=== PATIENT | male | born 1975 | race Caucasian/White ===

== ENCOUNTER 2017-11-04 14:20 | Emergency (ER) | payer SELFPAY ==
[~2017-11-04] VITALS: Ht 193 cm; Wt 122.0 kg
[2017-11-04] MEDS ORDERED: cefTRIAXone 1 GM (ROCEPHIN) VIAL IV STA (15:09)
[2017-11-04] MEDS ORDERED: LACTATED RINGERS 1,000 ML IV ONE (15:09)
--- NOTE | 2017-11-04 15:09 | ED GU-Male ---
General Chief Complaint: Skin/Wound Problems Stated Complaint: GROIN INFECTION PER [facility] Nursing Triage Note: Patient advises that he had a hydrocelectomy approximately 8 years ago. Since the procedure about every 8months to a year he experiences severe cellulitis and infection that is normally responsive to antibiotics. He advises he was seen at the [place] [facility] today and was sent for further evaluation. Source: patient, other Exam Limitations: no limitations History of Present Illness Time seen by provider: 15:01 Initial Comments Patient presents to ER by private conveyance with a chief complaint that for 8 months proceeding today he has had some progressively swelling and redness and tenderness in his scrotum however in the last few days it has gotten progressively worse the point at 8 out of 10 severity legs being kicked in the next he had some fevers. He says his been going on for about 8 years when he had a seroma surgically removed out of his scrotum by urologist in [facility]. Since that time is get the slow reaccumulation is without maybe he had a underlying infection resulting in cellulitis and have treated with multiple courses and presently longer courses of antibiotics. He is also seen a urologist in [facility] but has not come up with a tear or diagnosis yet other than trying longer courses of antibiotics which usually resolve it. He says he occasionally gets blisters on the scrotum which she will symptoms pop and they will relieve a clear straw-colored non-foul smelling serous fluid and relieve some pressure in his scrotum. He is having no nausea or vomiting, diarrhea. He has swelling around the shaft of the penis and it has been more difficult to start a urinary stream and it solis when he pees in the last day or so. He has been in in a monogamous relationship for about a year. He has painful sex and no discharge. Allergies and Home Medications Allergies Coded Allergies: No Known Drug Allergies (Unverified , 11/04/17) Constitutional: No chills, No diaphoresis EENTM: no symptoms reported Respiratory: no symptoms reported Cardiovascular: no symptoms reported Gastrointestinal: No abdominal pain, No constipation, No diarrhea, No nausea, No vomiting Genitourinary: see HPI, denies burning, denies discharge Musculoskeletal: no symptoms reported Skin: No pruritus, No rash Past [id number]-[id number]-Lcbprs Hx Patient Social History Alcohol Use: Denies Use Recreational Drug Use: No Smoking Status: Never a Smoker Recent Foreign Travel: No Contact w/Someone Who Travel: No Recent Infectious Disease Expo: No Recent Hopitalizations: No Physical Abuse: No Sexual Abuse: No Seasonal Allergies Seasonal Allergies: No Surgeries History of Surgeries: Yes (hydrocelectomy) Respiratory History of Respiratory Disorde: No Cardiovascular History of Cardiac Disorders: No Neurological History of Neurological Disord: No Genitourinary History of Genitourinary Disor: No Gastrointestinal History of Gastrointestinal Di: No Musculoskeletal History of Musculoskeletal Dis: No Endocrine History of Endocrine Disorders: No HEENT History of HEENT Disorders: No Cancer History of Cancer: No Psychosocial History of Psychiatric Problem: No Suicide Risk Score: 0 Physical Exam Vital Signs Vital Sign - Last 12Hours 11/04/17 14:44 Temp 97.9 Pulse 87 Resp 20 B/P (MAP) 130/88 (102) Pulse Ox 94 O2 Delivery Room Air Capillary Refill : Less Than 3 Seconds General Appearance: WD/WN, mild distress HEENT: PERRL/EOMI, pharynx normal Neck: non-tender, normal inspection Cardiovascular: normal peripheral pulses, regular rate, rhythm Respiratory: chest non-tender, no respiratory distress, no accessory muscle use Gastrointestinal: normal bowel sounds, non tender, soft Male: No testicular tenderness, other (scrotum is erythematous, warm, swollen, fluid-filled the size of a coconut with edematous swelling around the penis circumferential around just proximal to the uriarte.) Extremities: normal range of motion, normal capillary refill Neurologic/Psychiatric: alert, oriented x 3 Focused Exam Evaluation Lactate Level Laboratory Tests 11/04/17 14:41: Lactic Acid Level 0.97 Lactic Acid Level Laboratory Tests Test 11/04/17 14:41 Lactic Acid Level 0.97 MMOL/L (0.50-2.00) Progress/Results/Core Measures Suspected Sepsis Recent Fever Within 48 Hours: Yes Infection Criteria Present: Suspected New Infection New/Unexplained Altered Menta: Yes Sepsis Screen: No Definite Risk Sepsis Diagnosis: SIRS Temperature:97.9 Pulse: 87 Respiratory Rate: 20 Laboratory Tests 11/04/17 14:41: White Blood Count 11.9H Blood Pressure 130 /88 Mean: 102 Laboratory Tests 11/04/17 14:41: Lactic Acid Level 0.97 Laboratory Tests 11/04/17 14:41: Creatinine 0.94, Platelet Count 233, Total Bilirubin 0.6 Results/Orders Lab Results Laboratory Tests Test 11/04/17 14:41 11/04/17 15:34 Range/Units White Blood Count 11.9 H 4.3-11.0 10^3/uL Red Blood Count 5.65 4.35-5.85 10^6/uL Hemoglobin 15.7 13.3-17.7 G/DL Hematocrit 45 40-54 % Mean Corpuscular Volume 80 80-99 FL Mean Corpuscular Hemoglobin 28 25-34 PG Mean Corpuscular Hemoglobin Concent 35 32-36 G/DL Red Cell Distribution Width 13.5 10.0-14.5 % Platelet Count 233 130-400 10^3/uL Mean Platelet Volume 11.6 H 7.4-10.4 FL Neutrophils (%) (Auto) 70 42-75 % Lymphocytes (%) (Auto) 19 12-44 % Monocytes (%) (Auto) 10 0-12 % Eosinophils (%) (Auto) 1 0-10 % Basophils (%) (Auto) 0 0-10 % Neutrophils # (Auto) 8.3 H 1.8-7.8 X 10^3 Lymphocytes # (Auto) 2.2 1.0-4.0 X 10^3 Monocytes # (Auto) 1.2 H 0.0-1.0 X 10^3 Eosinophils # (Auto) 0.1 0.0-0.3 10^3/uL Basophils # (Auto) 0.0 0.0-0.1 10^3/uL Sodium Level 137 135-145 MMOL/L Potassium Level 3.9 3.6-5.0 MMOL/L Chloride Level 105 98-107 MMOL/L Carbon Dioxide Level 22 21-32 MMOL/L Anion Gap 10 5-14 MMOL/L Blood Urea Nitrogen 12 7-18 MG/DL Creatinine 0.94 0.60-1.30 MG/DL Estimat Glomerular Filtration Rate > 60 BUN/Creatinine Ratio 13 Glucose Level 103 70-105 MG/DL Lactic Acid Level 0.97 0.50-2.00 MMOL/L Calcium Level 9.0 8.5-10.1 MG/DL Total Bilirubin 0.6 0.1-1.0 MG/DL Aspartate Amino Transf (AST/SGOT) 45 H 5-34 U/L Alanine Aminotransferase (ALT/SGPT) 60 H 0-55 U/L Alkaline Phosphatase 93 40-136 U/L Total Protein 7.4 6.4-8.2 GM/DL Albumin 3.9 3.2-4.5 GM/DL Urine Color YELLOW Urine Clarity CLEAR Urine pH 5 5-9 Urine Specific [place] 1.025 H 1.016-1.022 Urine Protein NEGATIVE NEGATIVE Urine Glucose (UA) NEGATIVE NEGATIVE Urine Ketones NEGATIVE NEGATIVE Urine Nitrite NEGATIVE NEGATIVE Urine Bilirubin NEGATIVE NEGATIVE Urine Urobilinogen 1 NORMAL MG/DL Urine Leukocyte Esterase 1+ H NEGATIVE Urine RBC (Auto) NEGATIVE NEGATIVE Urine RBC NONE /HPF Urine WBC NONE /HPF Urine Squamous Epithelial Cells RARE /HPF Urine Crystals NONE /LPF Urine Bacteria TRACE /HPF Urine Casts NONE /LPF Urine Mucus SMALL H /LPF Urine Culture Indicated NO My Orders Orders - SOURAV LORENZANA Cbc With Automated Diff (11/04/17 15:09) Comprehensive Metabolic Panel (11/04/17 15:09) Lactic Acid Analyzer (11/04/17 15:09) Blood Culture (11/04/17 15:09) Ua Culture If Indicated (11/04/17 15:09) O2 (11/04/17 15:09) Saline Lock/Iv-Start (11/04/17 15:09) Vital Signs Adult Sepsis Patie Q1H (11/04/17 15:09) Ceftriaxone Injection (Rocephin Injectio (11/04/17 15:09) Us Scrotum (Testicle) [id number] (11/04/17 15:09) Lactated Ringers (Lr 1000 Ml Iv Solution (11/04/17 15:09) Ns (Ivpb) (Sodium Chloride 0.9% Ivpb Bag (11/04/17 15:43) Ns (Ivpb) (Sodium Chloride 0.9% Ivpb Bag (11/04/17 15:44) Fentanyl Injection (Sublimaze Injection (11/04/17 16:15) Neis Mani Dna Urine Test (11/04/17 16:06) Chlamydia Dna Urine Test (11/04/17 16:06) Hydrocodone/Apap 10/325 Tablet (Lortab 1 (11/04/17 17:45) Medications Given in ED Current Medications Medications Dose Ordered Sig/Tess Route Start Time Stop Time Status Last Admin Dose Admin Acetaminophen/ Hydrocodone Bitart 1 ea ONCE ONCE PO 11/04/17 17:45 11/04/17 17:46 DC 11/04/17 17:43 1 EA Fentanyl Citrate 50 mcg ONCE ONCE IVP 11/04/17 16:15 11/04/17 16:16 DC 11/04/17 16:28 50 MCG Lactated Ringer's 1,000 ml @ 0 mls/hr Q0M ONCE IV 11/04/17 15:09 11/04/17 15:13 DC 11/04/17 15:52 0 MLS/HR Sodium Chloride 50 ml @ ud STK-MED ONCE .ROUTE 11/04/17 15:44 11/04/17 15:48 DC 11/04/17 15:54 0 MLS/HR Vital Signs/I&O Vital Sign - Last 12Hours 11/04/17 14:44 Temp 97.9 Pulse 87 Resp 20 B/P (MAP) 130/88 (102) Pulse Ox 94 O2 Delivery Room Air Capillary Refill : Less Than 3 Seconds Blood Pressure Mean: 102 Diagnostic Imaging Diagonstic Imaging: Ultrasound Plain Films/CT/US/NM/MRI: other (scrotum) Comments NAME: ADELA BOWERS MED REC#: [id number] PHYSICIAN: SOURAV LORENZANA MD CC: ADARSH HAYWARD; SOURAV LORENZANA Page 1 of 1 RADIOLOGY REPORT VIA [facility]. [place], [place] CC: ADARSH HAYWARD; SOURAV LORENZANA Page 1 of 1 RADIOLOGY REPORT NAME: ADELA BOWERS MED REC#: [id number] PT STATUS: REG ER : 1975 PHYSICIAN: SOURAV LORENZANA MD ADMIT DATE: 11/04/17/ER Signed Date of Exam: 11/04/17 US SCROTUM (Testicle) [id number] INDICATION: Swelling, redness. COMPARISON: None. TECHNIQUE: Real-time, spectral and color Doppler imaging of the scrotum was obtained. FINDINGS: The right testicle measures 44 x 28 x 34 mm, the left 44 x 29 x 27 mm. The size and echogenicity is normal. There is no hydrocele. The epididymides are poorly visualized. There is significant soft tissue edema involving the scrotal soft tissues and wall likely cellulitis. There is no abscess. IMPRESSION: 1. No testicular mass, torsion or abscess identified. 2. Severe cellulitis involving the scrotal soft tissues. Dictated by: Dictated on workstation # [id number] Dict: 11/04/17 1641 Trans: 11/04/171651 Interpreted by: ADARSH HAYWARD Electronically signed by: ADARSH HAYWARD 11/04/171651 Reviewed: Reviewed by Me Consults Consults : Consulting Physician: KEISHA BUTLER MD Consults Notes Discussed case lab imaging and findings and he agrees with the 1 g of Rocephin and recommends Keflex 500 mg 4 times a day for 10 days and follow-up in the clinic Monday or Monday. Departure Impression Impression: Primary Impression: Cellulitis, scrotum Disposition: HOME, SELF-CARE Condition: Stable Departure-Patient Inst. Decision time for Depature: 18:03 Referrals: NO,LOCAL PHYSICIAN (PCP/Family) Primary Care Physician Patient Instructions: Cellulitis (Skin Infection), Adult (DC) Add. Discharge Instructions: Use Tylenol 1000 mg every 8 hours and or ibuprofen 800 mg every 8 hours as needed for pain. Sitz baths may be helpful. 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 Do this antibiotic for 10 days. It may be osuna to use probiotics twice a day while you're on antibiotics to try and reduce your GI symptoms such as diarrhea. Monday morning call Dr. Butler at [phone] to get an appointment in the following 1-2 weeks. If you have breakthrough pain you can take one to 2 tablets of hydrocodone every 6 hours as needed. Hydrocodone will cause drowsiness as well as constipation. If you become constipated you should take one or 2 capfuls of MiraLAX per glass of water daily. You should not operate heavy machinery or drive long distances while under the influence of hydrocodone. Do not mix alcohol hydrocodone. All discharge instructions reviewed with patient and/or family. Voiced understanding. Scripts Hydrocodone Bit/Acetaminophen (Hydrocodone/Acetaminophen 5/325mg Tablet) 1 Tab Tab 1-2 EACH PO Q6H Y for BREAKTHROUGH PAIN, #20 TAB 0 Refills Prov: SOURAV LORENZANA 11/04/17 Cephalexin (Cephalexin) 500 Mg Capsule 500 MG PO QID for 10 Days, #40 CAP 0 Refills Prov: SOURAV LORENZANA 11/04/17 Copy Copies To 1: KEISHA BUTLER MD, TITUS J Nov 04, 2017 15:08
[2017-11-04 15:20] LABS: BASOPHILS % (AUTO) 0 % (0-10); EOSINOPHILS # (AUTO) 0.1 10^3/uL (0.0-0.3); EOSINOPHILS % (AUTO) 1 % (0-10); HEMATOCRIT 45 % (40-54); HEMOGLOBIN 15.7 G/DL (13.3-17.7); LYMPHOCYTES # (AUTO) 2.2 X 10^3 (1.0-4.0); LYMPHOCYTES % (AUTO) 19 % (12-44); MEAN CORPUSCULAR HEMOGLOBIN 28 PG (25-34); MEAN CORPUSCULAR HGB CONC 35 G/DL (32-36); MEAN CORPUSCULAR VOLUME 80 FL (80-99); MEAN PLATELET VOLUME 11.6 FL (7.4-10.4); MONOCYTES # (AUTO) 1.2 X 10^3 (0.0-1.0); MONOCYTES % (AUTO) 10 % (0-12); NEUTROPHILS # (AUTO) 8.3 X 10^3 (1.8-7.8); NEUTROPHILS % (AUTO) 70 % (42-75); PLATELET COUNT 233 10^3/uL (130-400); RED BLOOD COUNT 5.65 10^6/uL (4.35-5.85); RED CELL DISTRIBUTION WIDTH 13.5 % (10.0-14.5); WHITE BLOOD COUNT 11.9 10^3/uL (4.3-11.0)
[2017-11-04 15:30] LABS: ALANINE AMINOTRANSFERASE 60 U/L (0-55); ALBUMIN 3.9 GM/DL (3.2-4.5); ALKALINE PHOSPHATASE 93 U/L (40-136); BILIRUBIN,TOTAL 0.6 MG/DL (0.1-1.0); BUN/CREATININE RATIO 13; CARBON DIOXIDE 22 MMOL/L (21-32); CHLORIDE 105 MMOL/L (98-107); CREATININE SERUM 0.94 MG/DL (0.60-1.30); GFR ESTIMATED > 60; GLUCOSE 103 MG/DL (70-105); POTASSIUM 3.9 MMOL/L (3.6-5.0); SODIUM 137 MMOL/L (135-145); TOTAL PROTEIN 7.4 GM/DL (6.4-8.2)
[2017-11-04] MEDS ORDERED: NS (IVPB) 0 ML ONE (15:43)
[2017-11-04] MEDS ORDERED: NS (IVPB) 50 ML ONE (15:44)
[2017-11-04 15:54] LABS: BACTERIA,URINE TRACE /HPF; BILIRUBIN,URINE NEGATIVE (NEGATIVE); CLARITY,URINE CLEAR; COLOR,URINE YELLOW; GLUCOSE, URINE (UA) NEGATIVE (NEGATIVE); KETONES,URINE NEGATIVE (NEGATIVE); LEUKOCYTE ESTERASE ,URINE 1+ (NEGATIVE); NITRITE,URINE NEGATIVE (NEGATIVE); PH,URINE 5 (5-9); PROTEIN,URINE NEGATIVE (NEGATIVE); SQUAMOUS EPITHELIAL CELL,UR RARE /HPF; UROBILINOGEN,URINE 1 MG/DL (NORMAL)
[2017-11-04] MEDS ORDERED: fentaNYL INJECTION 100 MCG/2 ML AMP IVP ONE (16:15)
--- NOTE | 2017-11-04 16:47 | Diagnostic Imaging Report ---
INDICATION: Swelling, redness. COMPARISON: None. TECHNIQUE: Real-time, spectral and color Doppler imaging of the scrotum was obtained. FINDINGS: The right testicle measures 44 x 28 x 34 mm, the left 44 x 29 x 27 mm. The size and echogenicity is normal. There is no hydrocele. The epididymides are poorly visualized. There is significant soft tissue edema involving the scrotal soft tissues and wall likely cellulitis. There is no abscess. IMPRESSION: 1. No testicular mass, torsion or abscess identified. 2. Severe cellulitis involving the scrotal soft tissues. Dictated by: Dictated on workstation # [id number]
[2017-11-04] MEDS ORDERED: HYDROcodone/APAP 10 MG/325 MG (LORTAB) TAB PO ONE (17:45)
[2017-11-04] MEDS ORDERED: CEPH500C PO (18:06)
[2017-11-04] MEDS ORDERED: ACHD5005 PO (18:06)
[2017-11-04 18:27] VITALS: BP 189/91
== END 2017-11-04 18:25 | disposition home or self-care (01) ==
LOC: ER 14:23
DX: N49.2 Inflammatory disorders of scrotum (principal); Z87.438 Personal history of other diseases of male genital organs
CPT/HCPCS: 36415; 76870; 80053; 81000; 83605; 85025; 87040; 87077; 87491; 87591